=== PATIENT | female | born 1955 | race Caucasian/White ===

== ENCOUNTER 2018-06-10 03:09 | Inpatient (IN) | payer OTHER ==
[~2018-06-10] VITALS: Ht 170.2 cm; Wt 109.7 kg
--- NOTE | ~2018-06-10 | CATHLAB ---
[facility] [address] [place] [address] INVASIVE PROCEDURE REPORT Name: MARIAN MURRAY Room #: 207-P ADM IN .R.#: [id number] Admission: 06/10/18 Attend Phys: Jeremi Pozo MD Discharge: Date of : 55 Date of Service: 06/11/18 1230 Report #: [id number] THIS REPORT FOR: //name// APPROVED REPORT Study performed: 06/11/2018 09:43:17 Patient Details Patient Status: In-Patient Room #: 207 The patient is a 63 year-old female Event Personnel Michael Lindsay Alarm Service Technician, Vince Mccallum RN RN, Ciera Anderson RTR, Tee Coates Christine RTR Monitor Procedures Performed Art Access - R femoral artery* Left Heart Cath w/or w/o Coronaries [id number] [facility] [address] Initial Mod Sed Same Phys/QHP Gr5y 797043 Hemostasis with Manual pressure Indication CHF Current Status: , Dyspnea, Unstable angina , Cardiomyopathy Risk Factors Hypercholesterolemia, Hypertension Procedure Narrative The Right Groin^ was infiltrated with 1% Lidocaine subcutaneous anesthesia. A PINNACLE 4FR Sheath #[id number] sheath was inserted into the RFA^. Coronary angiography was performed using coronary diagnostic catheters. The right coronary system was accessed and visualized with a JR4 catheter. The left coronary system was accessed and visualized with a JL4 catheter. The left ventricle was accessed and visualized with a Pigtail catheter. Left ventricular/Aortic Valve gradient assessed via catheter pullback. Left ventriculogram was performed in 30 degree projection. Hemostasis was obtained with manual pressure following sheath removal without any complications. There was no hematoma. Intraoperative Conscious Sedation Sedation start time: 10:00 Case end Time: 10:30 Fentanyl 50 mcg Versed 1.5 mg Fluoro Time: 1.50 minutes [facility] [place] [address] INVASIVE PROCEDURE REPORT Name: MARIAN MURRAY Room #: 207-P [facility] IN ..#: [id number] Admission: 06/10/18 Attend Phys: Jeremi Pozo MD Discharge: Date of : 55 Date of Service: 06/11/18 1230 Report #: [id number] Dose: DAP 4484.23 cGycm2 605 mGy Contrast Type and Amount: Visipaque 100 ml Coronary Angiography The patient's coronary anatomy is right dominant. Diagnostic Cath Left Main patent vessel, with no flow-limiting lesions. LAD There is mild diffuse disease in the proximal mid segments, 20%. The proximal segment is mildly ectatic. Diagonal 1 Patent vessel. Circumflex Patent vessel, with mild disease in the proximal segment. OM1 Moderate size caliber vessel, with no flow-limiting lesions. Divides into several branches as it supplies the inferolateral wall. OM2 Patent vessel, with no flow-limiting lesions. Right Coronary Dominant vessel with mild disease in the mid segment, less than 20%. R PDA Patent vessel, with no flow-limiting lesions. RPLV Patent vessel, with no flow-limiting lesions. Left Ventriculography The left ventricle is mildly dilated in size with decreased contractility. The left ventricular ejection fraction is estimated to be 30-35%. Hemodynamics The aortic pressure is 187/112 mmHg with a mean of 59 mmHg. The left ventricular pressure is 193/31 mmHg with a mean of mmHg. The left ventricular end diastolic pressure is 62 mmHg. Conclusion 1. Moderately severe nonischemic cardiomyopathy. 2. Mild, nonobstructive CAD. 3. Recommend medical therapy. <ELECTRONICALLY SIGNED> By: Michael Lindsay MD 06/11/18 1230 1230 1230 Michael Lindsay MD /INF
--- NOTE | ~2018-06-10 | EKG ---
[address] [place] [address] ELECTROCARDIOGRAM REPORT Name: QUAN MURRAYCHRISTELLE Moon Room #: 207-P ADM IN M.R.#: [id number] Admission: 06/10/18 Attend Phys: Jeremi Pozo MD Discharge: Date of : 55 Report #: [id number] THIS REPORT FOR: //name// [facility] Test Date: 2018-06-10 Test Time: 07:39:00 Pat Name: MARIAN MURRAY Department: Room: 207 P Gender: F Exercise Manager: RAVEN : 1955 Requested By: Kelly Horowitz Order Number: [id number] MD: Michael Lindsay Measurements Intervals [place] Rate: 97 P: 51 AR: 160 QRS: 80 QRSD: 97 T: 147 QT: 400 QTc: 508 Interpretive Statements Sinus tachycardia Ventricular trigeminy Left atrial enlargement Left ventricular hypertrophy Anterior Q waves, possibly due to LVH Nonspecific T abnormalities, lateral leads Prolonged QT interval No previous ECG available for comparison Electronically Signed On 06-10-2018 11:06:18 CDT by Michael Lindsay [email or web address] <ELECTRONICALLY SIGNED> By: Michael Lindsay MD 06/10/18 1106 Michael Lindsay MD /ZULMA
--- NOTE | ~2018-06-10 | 2DMMODE ---
[facility] [place] [address] 2 D/M-MODE ECHOCARDIOGRAM Name: MARIAN MURRAY Room #: 207-P [facility] IN ..#: [id number] Admission: 06/10/18 Attend Phys: Jeremi Pozo MD Discharge: Date of : 55 Date of Service: 06/11/18 1458 Report #: [id number] THIS REPORT FOR: //name// APPROVED REPORT Study performed: 06/11/2018 12:56:52 EXAM: Comprehensive 2D, Doppler, and color-flow Echocardiogram Patient Location: Bedside Room #: [facility] Status: routine BSA: 2.25 HR: 93 bpm BP: 145/85 mmHg Rhythm: Arrhythmia Other Information Study Quality: Adequate Technically limited study due to body habitus, inability to position patient; status post angiogram. Indications CHF, mild CAD. HTN, HLP. 2D Dimensions RVDd: 40.20 mm LVEF(%): 48.53 (>50%) IVSd: 13.82 (7-11mm) LVOT Diam: 20.77 (18-24mm) LVDd: 60.26 mm PWd: 12.23 (7-11mm) Ascending Ao: 36.96 (22-36mm) LVDs: 45.23 (25-40mm) Aortic Root: 35.09 mm Hardy's LVEF: 48.53 % Volumes Left Atrial Volume (Systole) Single Plane 4CH: 68.54 mL Single Plane 2CH: 104.00 mL LA ESV Index: 40.00 mL/m2 Aortic Valve AoV Peak Lorenzo.: 1.36 m/s AO Peak Gr.: 7.36 mmHg LVOT Max P.02 mmHg LVOT Max V: 0.87 m/s SIMA Vmax: 2.17 cm2 Mitral Valve [facility] [place] [address] 2 D/M-MODE ECHOCARDIOGRAM Name: MURRAYMARIAN Room #: 207-P [facility] IN .R.#: [id number] Admission: 06/10/18 Attend Phys: Jeremi Pozo MD Discharge: Date of : 55 Date of Service: 06/11/18 1458 Report #: [id number] MV Decel. Time: 153.70 ms MV E Max Lorenzo.: 1.00 m/s Pulmonary Valve PV Peak Lorenzo.: 0.81 m/s PV Peak Gr.: 2.62 mmHg Tricuspid Valve TR Peak Lorenzo.: 2.00 m/s RAP Estimate: 5.00 mmHg TR Peak Gr.: 16.02 mmHg PA Pressure: 21.00 mmHg Left Ventricle Left ventricle is dilated. Mild concentric left ventricular hypertrophy. Left ventricular systolic function is moderate to severely decreased. LVEF is 35%. This study is not technically sufficient to allow evaluation of the LV diastolic function. Right Ventricle The right ventricle is normal size. The right ventricular systolic function is normal. Atria Left atrium is mild to moderately dilated. Right atrium is at the upper limits of normal. Aortic Valve The aortic valve is normal in structure. No aortic regurgitation is present. There is no aortic valvular stenosis. Mitral Valve The mitral valve is normal in structure. Mild to moderate mitral regurgitation. Tricuspid Valve The tricuspid valve is normal in structure. Trace tricuspid regurgitation. Estimated PAP is 20-25mmHg. Pulmonic Valve The pulmonary valve is normal in structure. There is no pulmonic valvular regurgitation. Great Vessels The aortic root is normal in size. The ascending aorta is normal in size. IVC is normal in size and collapses >50% with inspiration. [facility] [address] [place] [address] 2 D/M-MODE ECHOCARDIOGRAM Name: MARIAN MURRAY Room #: 207-P [facility] IN .R.#: [id number] Admission: 06/10/18 Attend Phys: Jeremi Pozo MD Discharge: Date of : 55 Date of Service: 06/11/18 1458 Report #: [id number] Pericardium There is no pericardial effusion. <Conclusion> Left ventricle is dilated. Mild concentric left ventricular hypertrophy. Left ventricular systolic function is moderate to severely decreased. LVEF is 35%. The right ventricle is normal size. Left atrium is mild to moderately dilated. There is no aortic valvular stenosis. Mild to moderate mitral regurgitation. Trace tricuspid regurgitation. Estimated PAP is 20-25mmHg. <ELECTRONICALLY SIGNED> By: Michael Lindsay MD 06/11/18 1458 1458 1458 Michael Lindsay MD /INF
--- NOTE | ~2018-06-10 | HC ---
[facility] [place] [address] [place] [address] CONSULTATION Name: MARIAN MURRAY Room #: 207-P [facility] IN .R.#: [id number] Admission: 06/10/18 Attend Phys: Jeremi Pozo MD Discharge: Date of : 55 Report #: [id number] THIS REPORT FOR: //name// CC: Jeremi Lopez DATE OF SERVICE: 06/10/2018 TYPE OF REPORT: Cardiology consultation. INDICATION: Chest pain and dyspnea. HISTORY OF PRESENT ILLNESS: This is a 63-year-old female with a history of breast cancer, presenting with chest pains and shortness of breath. For the past few weeks, she has been experiencing bilateral lower chest discomfort, occurring with exertion. For example, she was outside cutting wood when she developed chest pains and shortness of breath. Her symptoms resolved with rest. She has had several episodes, in a similar fashion. She did see a fare enforcement officer down at [facility], an echo revealed an EF in the 35% range. She was started on Toprol, losartan and aspirin. Last evening, she develops progressive symptoms, occurring at rest. She was trying to go to sleep when she developed chest pains or shortness of breath. She was evaluated in the ER, [facility], found to have a minimally elevated troponin level. She was treated with Lasix. Presently, she feels much better with no further episodes of dyspnea or chest pain. There is no history of fever, cough or diarrhea. PAST MEDICAL HISTORY: Bilateral breast cancer, status post mastectomy, chemotherapy and radiation therapy. History of hypertension, anxiety, hyperlipidemia and GERD. Positive for edema. ALLERGIES: None. MEDICATIONS: At home include anastrozole 1 mg daily, lovastatin, Toprol-XL, losartan, Xanax, potassium and Protonix. SOCIAL HISTORY: Negative for tobacco use presently. FAMILY HISTORY: Negative for premature CAD. REVIEW OF SYSTEMS: A full 10-point review of systems performed. Only the pertinent positives and negatives are described in the HPI. PHYSICAL EXAMINATION: VITAL SIGNS: Blood pressure is 150/60, heart rate is 90 beats per minute. GENERAL APPEARANCE: An overweight female, in no acute distress. HEAD AND EYES: Normocephalic. Sclerae are anicteric. [facility] [address] [place] [address] CONSULTATION Name: MARIAN MURRAY Room #: [address] [place] [address] IN ..#: [id number] Admission: 06/10/18 Attend Phys: Jeremi Pozo MD Discharge: Date of : 55 Report #: [id number] ENT: Oral mucosa moist. NECK: Supple. LUNGS: Few basilar crackles. CARDIAC: S1 and S2 positive. A 1/6 systolic murmur. ABDOMEN: Soft and nontender. EXTREMITIES: No cyanosis. Positive edema. NEUROLOGICAL: Alert and oriented x 3. RADIOLOGICAL DATA: ECG reveals sinus rhythm, frequent PVCs in a ventricular trigeminy, LVH, nonspecific ST-segment abnormalities. LABORATORY VALUES: Troponin 0.07 here. Creatinine is 1.1 from [place]. ASSESSMENT AND PLAN: 1. Unstable angina, with minimal troponin elevation. Given her symptoms and progression, I discussed with the patient the pros and cons of a cardiac catheterization. She understands and wishes to proceed. 2. Acute combined heart failure, continue with Lasix. Her symptoms improve after one dose in the Emergency Room at [facility]. She still has evidence for congestion and will continue with diuresis. In regards to medications, we will change the beta stanford to carvedilol. She will continue with losartan. 3. Hypertension, start Coreg and continue losartan. 4. Rule out urinary tract infection with elevated lactate level. 5. History of breast cancer. <ELECTRONICALLY SIGNED> By: Michael Lindsay MD 06/11/18 0805 0954 2133 Michael Lindsay MD /nt
--- NOTE | ~2018-06-10 | H ---
[facility] [place] [address] [place] [address] HISTORY AND PHYSICAL Name: MARIAN MURRAY Room #: 207-P ADM IN M.R.#: [id number] Admission: 06/10/18 Attend Phys: Jeremi Pozo MD Discharge: Date of : 55 Report #: [id number] THIS REPORT FOR: //name// CC: Jeremi Lopez DATE OF SERVICE: 06/10/2018 ATTENDING PHYSICIAN: Dr. Pozo. PRIMARY CARE PHYSICIAN: Dr. Zeke Lopez. CHIEF COMPLAINT: Shortness of breath. HISTORY OF PRESENT ILLNESS: The patient is a 63-year-old female who recently was experiencing some chest pressure and saw a mechanical intern in [place], [place] a few weeks ago. She had an abnormal echocardiogram, which showed an EF of 35%. This was new onset heart failure. She was scheduled for a Lexiscan stress test later on this week. She was started on metoprolol and losartan as well as a baby aspirin by Dr. Swanson. She went to [facility] with sudden onset shortness of breath. She says she was having difficulty breathing for the last few days, but it got significantly worse tonight. Her breathing was worse when she would lie down to try to sleep. She has noticed about a 4-pound weight gain. She feels it mostly in her abdomen. She was in respiratory distress when she initially arrived at [facility] and was very diaphoretic. She complained of some chest pressure. She was initially placed on BiPAP and given Lasix and did diurese well and has since been taken off BiPAP. She was transferred here as a direct admission since her troponin was very mildly elevated. She was noted to have pulmonary edema on the chest x-ray. She does feel better after diuresing. Upon arrival to [facility], she has not been in any respiratory distress. Denies any further chest pressure. It was reported that she was having some very short runs of ventricular tachycardia at [facility]. She is currently resting comfortably. PAST MEDICAL HISTORY: Breast cancer status post chemo and radiation, hypertension, depression and anxiety, GERD, hyperlipidemia. PAST SURGICAL HISTORY: Port-A-Cath placement, breast biopsy, left and right mastectomies, partial hysterectomy, cholecystectomy. ALLERGIES: None. HOME MEDICATIONS: Anastrozole 1 mg p.o. daily, lovastatin 10 mg daily, Toprol XL 50 mg daily, losartan 50 mg daily, Mobic 15 mg daily, Xanax 0.5 mg b.i.d. p.r.n., calcium and vitamin D 1 tab daily, potassium 20 mEq p.o. t.i.d., magnesium 250 mg p.o. daily and Protonix [address] [address] HISTORY AND PHYSICAL Name: MARIAN MURRAY Room #: 207-P [facility] IN M.R.#: [id number] Admission: 06/10/18 Attend Phys: Jreemi Pozo MD Discharge: Date of : 55 Report #: [id number] SOCIAL HISTORY: The patient is an ex-smoker, having quit 3 years ago after smoking half pack to 1 pack of cigarettes per day for about 10 years. She drinks alcohol occasionally. Denies any drug use. She lives at home with her spouse. She ambulates independently. FAMILY HISTORY: Significant for cancer. Her mother had breast cancer. Her father of lung cancer. Her brother had renal cancer. Her sister had breast cancer and another sister has had melanoma. She denies any family members having any congestive heart failure or coronary artery disease. REVIEW OF SYSTEMS: The patient has had breast cancer that did spread to her lymph nodes. She underwent chemo and radiation, but completed treatment a few years ago. She currently is on anastrozole. She follows with Dr. Krause with Oncology. She cannot remember what the name of the chemotherapy was called, but she states in 2016, she had a normal echocardiogram. All other 12-point review of systems was reviewed with the patient, otherwise negative unless stated in the HPI. PHYSICAL EXAMINATION: GENERAL: The patient is an alert female in no acute distress. VITAL SIGNS: Temperature was 36.7, heart rate 93, respirations 17, blood pressure 152/56, oxygen 97% on 2 liters O2. HEENT: PERRLA. Sclerae are nonicteric. Oral mucosa is pink and moist. NECK: Supple, no JVD noted. CARDIOVASCULAR: Normal S1, S2 with no murmurs, rubs or gallops. RESPIRATORY: Breath sounds are clear in bilateral upper lobes. She does have a few crackles in the left base. Breathing is nonlabored. ABDOMEN: Soft, obese, nontender, nondistended with positive bowel sounds. VASCULAR: Trace bilateral lower extremity edema, pedal pulses are 2+. NEUROLOGIC: The patient is alert and oriented x 3. Speech is clear. She is moving all extremities equally. No focal neuro deficits noted. LABORATORY DATA AND DIAGNOSTICS: WBC is 11.1, hemoglobin 15.2, platelets 339. Sodium 143, potassium 3.2, BUN 14, creatinine 1.1, glucose was 200. INR 0.9, lactate is 2.8, magnesium 1.7. LFTs are within normal limits. Troponin was 0.08. UA showed 3+ protein, no leukocyte esterase, but 1+ wbc and 2+ bacteria. Chest x-ray report is not available from [facility], but it was verbally reported that her chest x-ray showed bilateral pulmonary edema. ASSESSMENT AND PLAN: 1. Acute systolic heart failure. Recent EF with 35%. She has been given Lasix and has been diuresing well. We will continue with a few more doses of IV Lasix. Cardiology is consulted. Continue with metoprolol and losartan. 2. Non-ST elevation myocardial infarction. Her troponin was very mildly elevated, possibly due to stress from congestive heart failure, we will check [facility] [place] [address] [place] [address] HISTORY AND PHYSICAL Name: MARIAN MURRAY Red Room #: 207-P [facility] IN [facility].#: [id number] Admission: 06/10/18 Attend Phys: Jeremi Pozo MD Discharge: Date of : 55 Report #: [id number] serial cardiac enzymes. EKG shows no ischemic changes. Cardiology is consulted. Continue aspirin daily. She does not have any further chest pain. She is scheduled for a stress test later on this week with Dr. Swanson. We will defer further cardiac testing to Cardiology. 3. Hyperglycemia. The patient denies any history of diabetes. We will check a hemoglobin A1c. 4. Hypokalemia. We will replace and follow labs. 5. Possible urinary tract infection. Her lactate is mildly elevated. No other signs of infection was found. We will hold off on IV fluids because of congestive heart failure and repeat a UA at this time, it does not look like she received any antibiotics at [facility]. 6. History of breast cancer. She has had chemo and radiation in the past, which may have contributed to congestive heart failure. She is on anastrozole daily, which we will continue. She follows with Dr. Krause as outpatient. 7. Deep vein thrombosis prophylaxis. Place sequential compression devices. We will continue to follow the patient closely throughout the hospitalization and make changes based on clinical status. <ELECTRONICALLY SIGNED> By: LORY Dixon 06/10/1855 4 9 LORY Dixon /alfonso
[~2018-06-10 03:09] MED LIST: ACID REDUCER75 MG PO; APAP650 PO; HYDROCHLOROTHIA25 M1 PO; HYDROCODONE-AP1 EAC6 PO; MAGNESIUM OXID400 MG PO; POTASSIUM CHLO20 ME2 PO; XANAX 0.5 MG0.5 MG PO
[2018-06-10 04:49] VITALS: BP 152/56
[2018-06-10] MEDS ORDERED: ANASTROZOLE1 MG PO (06:31)
[2018-06-10] MEDS ORDERED: LOVASTATIN 20 M20 MG PO (06:33)
[2018-06-10] MEDS ORDERED: MOBIC15 MG PO (06:33)
[2018-06-10] MEDS ORDERED: CALCIUM 500 +1 EAC5 PO (06:34)
[2018-06-10] MEDS ORDERED: PROTONIX40 M1 PO (06:35)
[2018-06-10] MEDS ORDERED: LOPRESSOR50 PO (06:47)
[2018-06-10] MEDS ORDERED: COZAAR 50 MG TA50 M2 PO (06:56)
[2018-06-10 07:20] VITALS: BP 159/62
[2018-06-10 08:59] LABS: CHOLESTEROL 212 mg/dL (<200); HDL CHOLESTEROL 45 mg/dL (>40); LDL CHOLESTEROL 133 mg/dL (<100); TC:HDL 4.7 Ratio (Not establshd); TRIGLYCERIDE 174 mg/dL (<150); VLDL 35 mg/dL (<40)
[2018-06-10 11:35] VITALS: BP 132/71
[2018-06-10 13:01] LABS: HEMATOCRIT 42.3 % (37.0-47.0); HEMOGLOBIN 14.4 gm/dL (12.0-15.0); MCH 29.9 pg (26.0-34.0); MCV 87.8 fL (80.0-100.0); RBC 4.82 mil/uL (4.20-5.00); RDW 14.3 % (10.5-14.5); WBC 13.8 thou/uL (4.0-11.0)
[2018-06-10 13:05] LABS: CREATININE 1.1 mg/dL (0.6-1.0); POTASSIUM 3.3 mmol/L (3.5-5.1)
[2018-06-10 13:26] LABS: URINE BILIRUBIN NEGATIVE (Negative); URINE BLOOD NEGATIVE (Negative); URINE CLARITY CLEAR; URINE COLOR YELLOW; URINE GLUCOSE-RANDOM* NEGATIVE (Negative); URINE KETONES NEGATIVE (Negative); URINE LEUKOCYTES-REFLEX NEGATIVE (Negative); URINE NITRITE-REFLEX NEGATIVE (Negative); URINE PROTEIN (DIPSTICK) NEGATIVE (Negative); URINE SPECIFIC GRAVITY <= 1.005 (1.005-1.035); URINE UROBILINOGEN 0.2 E.U./dl (0.2-1.0)
[2018-06-10 16:50] VITALS: BP 123/60
[2018-06-10 19:33] VITALS: BP 125/68
[2018-06-10 23:42] VITALS: BP 150/87
[2018-06-11] VITALS (7 sets, daily range): BP systolic 121–151; BP diastolic 67–91
[2018-06-11 04:17] LABS: CALCIUM 9.8 mg/dL (8.5-10.1); CREATININE 1.2 mg/dL (0.6-1.0); POTASSIUM 3.9 mmol/L (3.5-5.1)
[2018-06-11 04:29] LABS: ABSOLUTE NEUTROPHILS 15.7 thou/uL (1.4-8.2); BASOPHILS 0.3 % (0.0-2.0); EOSINOPHILS 0.1 % (0.0-3.0); HEMATOCRIT 40.2 % (37.0-47.0); HEMOGLOBIN 13.8 gm/dL (12.0-15.0); LYMPHOCYTES 14.8 % (24.0-44.0); MCH 30.4 pg (26.0-34.0); MCHC 34.3 g/dL (28.0-37.0); MCV 88.6 fL (80.0-100.0); MONOCYTES 4.8 % (1.0-8.0); PLATELET COUNT 355 thou/uL (150-400); RBC 4.53 mil/uL (4.20-5.00); RDW 14.2 % (10.5-14.5); WBC 19.6 thou/uL (4.0-11.0)
[2018-06-11 13:11] LABS: GLYCOHEMOGLOBIN (HGB A1C) 5.7 % (4.8-5.6)
[2018-06-12 00:02] VITALS: BP 118/60
[2018-06-12 03:58] LABS: CALCIUM 9.5 mg/dL (8.5-10.1); POTASSIUM 3.7 mmol/L (3.5-5.1)
[2018-06-12 04:29] VITALS: BP 132/77
[2018-06-12 05:01] LABS: HEMATOCRIT 40.7 % (37.0-47.0); HEMOGLOBIN 13.9 gm/dL (12.0-15.0); MCH 30.2 pg (26.0-34.0); MCHC 34.2 g/dL (28.0-37.0); MCV 88.3 fL (80.0-100.0); RBC 4.61 mil/uL (4.20-5.00); WBC 10.6 thou/uL (4.0-11.0)
[2018-06-12 07:22] VITALS: BP 130/86
[2018-06-12] MEDS ORDERED: COREG25 MG PO (09:08)
[2018-06-12] MEDS ORDERED: LASIX 40 MG TAB40 M2 PO (09:08)
[2018-06-12] MEDS ORDERED: SPIRONOLACTONE25 M1 PO (09:08)
[2018-06-12] MEDS ORDERED: KEFLEX500 M1 PO (10:30)
[2018-06-12 11:24] VITALS: BP 119/70
[2018-06-12 14:55] VITALS: BP 119/70
== END 2018-06-12 16:04 | disposition home or self-care (01) | DRG 286 ==
LOC: 2N 03:09 → ENTRNSPT 06-12 15:48 → EDTRNSPTSTS 06-12 15:52 → 2N 06-12 16:04
PROVIDERS: Hospitalist; Internal Medicine Cardiovascular Disease; Nurse Practitioner Acute Care
PROC: 4A023N7 Measurement of Cardiac Sampling and Pressure, Left Heart, Percutaneous Approach (ICD-10-PCS; principal; 2018-06-11)
PROC: B2151ZZ Fluoroscopy of Left Heart using Low Osmolar Contrast (ICD-10-PCS; principal; 2018-06-11)
PROC: B2111ZZ Fluoroscopy of Multiple Coronary Arteries using Low Osmolar Contrast (ICD-10-PCS; principal; 2018-06-11)
DX: I11.0 Hypertensive heart disease with heart failure (principal); J96.01 Acute respiratory failure with hypoxia; I50.41 Acute combined systolic (congestive) and diastolic (congestive) heart failure; I42.9 Cardiomyopathy, unspecified; I25.110 Atherosclerotic heart disease of native coronary artery with unstable angina pectoris; F41.9 Anxiety disorder, unspecified; K21.9 Gastro-esophageal reflux disease without esophagitis; R73.9 Hyperglycemia, unspecified; E87.6 Hypokalemia; F32.9 Major depressive disorder, single episode, unspecified; M19.90 Unspecified osteoarthritis, unspecified site; E78.5 Hyperlipidemia, unspecified; E66.9 Obesity, unspecified; Z68.37 Body mass index [BMI] 37.0-37.9, adult; Z85.3 Personal history of malignant neoplasm of breast; Z92.21 Personal history of antineoplastic chemotherapy; Z92.3 Personal history of irradiation; Z90.49 Acquired absence of other specified parts of digestive tract; Z90.13 Acquired absence of bilateral breasts and nipples; Z87.891 Personal history of nicotine dependence; Z90.710 Acquired absence of both cervix and uterus; Z79.899 Other long term (current) drug therapy; Z80.3 Family history of malignant neoplasm of breast; Z80.1 Family history of malignant neoplasm of trachea, bronchus and lung; Z80.51 Family history of malignant neoplasm of kidney
CPT/HCPCS: 10081

== ENCOUNTER → 2020-04-14 | Outpatient (CLI) | payer MEDICARE ==
[~2020-04-14] MED LIST changes: +ANASTROZOLE1 MG PO; +CALCIUM 500 +1 EAC5 PO; +COREG25 MG PO; +COZAAR 50 MG TA50 M2 PO; +KEFLEX500 M1 PO; +LASIX 40 MG TAB40 M2 PO; +LOPRESSOR50 PO; +LOVASTATIN 20 M20 MG PO; +MOBIC15 MG PO; +PROTONIX40 M1 PO; +SPIRONOLACTONE25 M1 PO
== END ==
LOC: SJCVC 13:38
PROVIDERS: ATTEND Internal Medicine Cardiovascular Disease
DX: Z45.02 Encounter for adjustment and management of automatic implantable cardiac defibrillator (principal); R00.0 Tachycardia, unspecified; R94.31 Abnormal electrocardiogram [ECG] [EKG]; I42.9 Cardiomyopathy, unspecified; I11.0 Hypertensive heart disease with heart failure; I50.9 Heart failure, unspecified; K21.9 Gastro-esophageal reflux disease without esophagitis; E78.5 Hyperlipidemia, unspecified; Z82.49 Family history of ischemic heart disease and other diseases of the circulatory system; Z87.891 Personal history of nicotine dependence; Z95.810 Presence of automatic (implantable) cardiac defibrillator; Z79.82 Long term (current) use of aspirin; Z79.899 Other long term (current) drug therapy

== ENCOUNTER → 2022-01-03 | Outpatient (CLI) | payer MEDICARE | LOC: SJCVC 09:27 | PROVIDERS: ATTEND Internal Medicine Cardiovascular Disease | DX: I42.8 Other cardiomyopathies (principal); R94.31 Abnormal electrocardiogram [ECG] [EKG]; I10 Essential (primary) hypertension; E78.00 Pure hypercholesterolemia, unspecified; I49.3 Ventricular premature depolarization; K21.9 Gastro-esophageal reflux disease without esophagitis; E78.5 Hyperlipidemia, unspecified; Z95.810 Presence of automatic (implantable) cardiac defibrillator; Z79.82 Long term (current) use of aspirin; Z79.899 Other long term (current) drug therapy; F17.210 Nicotine dependence, cigarettes, uncomplicated; Z72.89 Other problems related to lifestyle ==